=== PATIENT | female | born 1955 | race American Indian/Alaskan Native ===

== ENCOUNTER 2017-04-07 17:34 | Emergency (ER) | payer SELFPAY ==
[2017-04-07 18:33] VITALS: BMI 34.0
[2017-04-07 18:35] VITALS: TEMP 98.2
[2017-04-07] MEDS ORDERED: Albuterol-Ipratrop 3 mg / 0.5 (3 ml) UD IH STA ×2 (19:02→19:56)
[2017-04-07] MEDS ORDERED: guaiFENesin 200 mg/10 ml Syrup UD PO STA (20:18)
--- NOTE | 2017-04-07 20:23 | ED PDOC ---
Arrival/HPI - General Chief Complaint: Cough, Cold, Congestion Time Seen by Provider: 04/07/17 19:02 Historian: Patient - History of Present Illness Narrative History of Present Illness (Text): 04/07/17 20:20 62yo female with PMhx of Asthma who present with complaint of cough, nasal congestion x days. Did not take any medication. States she have not use any inhaler at home, because she don't have any. She notes that she smokes a pack a day. she denies fever, chills, SOB, diaphoresis, LE edema, calf pain, sick contact, travel. Past Medical History - Provider Review Nursing Documentation Reviewed: Yes - Reproductive Menopause: Yes - Cardiac Hx Cardiac Disorders: Yes Hx Hypertension: Yes - Pulmonary Hx Respiratory Disorders: Yes Hx Asthma: Yes - Psychiatric Hx Substance Use: No - Surgical History Other/Comment: fibroid tumor - Anesthesia Hx Anesthesia: Yes Hx Anesthesia Reactions: No Hx Malignant Hyperthermia: No Family/Social History - Physician Review Nursing Documentation Reviewed: Yes Family/Social History: Unknown Family HX Smoking Status: Heavy Smoker > 10 Cigarettes Daily Hx Alcohol Use: Yes Frequency of alcohol use: Socially Hx Substance Use: No Allergies/Home Meds Allergies/Adverse Reactions: Allergies peanuts Allergy (Uncoded 04/07/17 18:33) ANAPHYLAXIS Review of Systems - Physician Review All systems were reviewed & negative as marked: Yes - Review of Systems Constitutional: Normal Eyes: Normal ENT: Normal Respiratory: Cough. absent: Sputum, Wheezing Cardiovascular: Normal Gastrointestinal: Normal Genitourinary Female: Normal Musculoskeletal: Normal Skin: Normal Neurological: Normal Endocrine: Normal Hemo/Lymphatic: Normal Psychiatric: Normal Physical Exam Vital Signs Reviewed: Yes Vital Signs Temp Pulse Resp BP Pulse Ox 04/07/17 20:33 97 H 18 150/88 98 04/07/17 18:35 98.2 F 99 H 18 169/86 H 97 Temperature: Afebrile Blood Pressure: Normal Pulse: Regular Respiratory Rate: Normal Appearance: Positive for: Well-Appearing, Non-Toxic, Comfortable Pain Distress: None Mental Status: Positive for: Alert and Oriented X 3 - Systems Exam Head: Present: Atraumatic, Normocephalic Pupils: Present: PERRL Extroacular Muscles: Present: EOMI Conjunctiva: Present: Normal Mouth: Present: Moist Mucous Membranes Neck: Present: Normal Range of Motion Respiratory/Chest: Present: Clear to Auscultation, Good Air Exchange, Wheezes ( Mild expiratory wheeze noted at the base), Decreased Breath Sounds (Upper carl ). No: Respiratory Distress, Accessory Muscle Use, Rales, Retracting, Rhonchi, Tachypneic Cardiovascular: Present: Regular Rate and Rhythm, Normal S1, S2. No: Murmurs Abdomen: Present: Normal Bowel Sounds. No: Tenderness, Distention, Peritoneal Signs Back: Present: Normal Inspection Upper Extremity: Present: Normal Inspection. No: Cyanosis, Edema Lower Extremity: Present: Normal Inspection. No: Edema Neurological: Present: GCS=15, CN II-XII Intact, Speech Normal Skin: Present: Warm, Dry, Normal Color. No: Rashes Psychiatric: Present: Alert, Oriented x 3, Normal Insight, Normal Concentration Medical Decision Making ED Course and Treatment: 04/07/17 20:35 Pt in ED for stated history. She was not in any distress. she was talking in full sentence, ambulatory without any distress. Her lung was CTA on re evaluation s/p treatment in ED. CXR was negative for consolidation/infiltrate. She was DC home with a rx of albuterol, Zithromax , prendisone, and promethazine. she was counselled on smoking cessation. Referred to a PMD/clinic. TRT ED for any new or worsening symptoms. - RAD Interpretation Radiology Orders: 04/07/17 19:03 CHEST TWO VIEWS (PA/LAT) [RAD] Stat - Medication Orders Current Medication Orders: Discontinued Medications Albuterol/Ipratropium (Duoneb 3 Mg/0.5 Mg (3 Ml) Ud) 3 ml IH STAT STA Stop: 04/07/17 19:03 Last Admin: 04/07/17 19:07 Dose: 3 ml Albuterol/Ipratropium (Duoneb 3 Mg/0.5 Mg (3 Ml) Ud) 3 ml IH STAT STA Stop: 04/07/17 19:57 Last Admin: 04/07/17 20:32 Dose: 3 ml Azithromycin (Zithromax) 500 mg PO STAT STA PRN Reason: Protocol Stop: 04/07/17 20:19 Last Admin: 04/07/17 20:32 Dose: 500 mg Guaifenesin (Robitussin) 200 mg PO ONCE STA Stop: 04/07/17 20:19 Last Admin: 04/07/17 20:32 Dose: 200 mg Prednisone (Prednisone Tab) 60 mg PO STAT ONE Stop: 04/07/17 19:03 Last Admin: 04/07/17 19:58 Dose: 60 mg Disposition/Present on Arrival - Present on Arrival Any Indicators Present on Arrival: No History of DVT/PE: No History of Uncontrolled Diabetes: No Urinary Catheter: No History of Decub. Ulcer: No History Surgical Site Infection Following: None - Disposition Have Diagnosis and Disposition been Completed?: Yes Diagnosis: Asthma exacerbation, Cough Disposition: HOME/ ROUTINE Disposition Time: 20:25 Patient Plan: Discharge Patient Problems: Current Active Problems Problem Status Onset Asthma exacerbation Acute Cough Acute Condition: STABLE Discharge Instructions (ExitCare): Asthma (ED), Acute Cough (ED) Additional Instructions: Follow up with your Doctor Return to ED for any new or worsening symptoms Prescriptions: Albuterol HFA [Ventolin HFA 90 mcg/actuation (8 g)] 2 puff IH [id number] #1 puff Azithromycin [Zithromax] 250 mg PO DAILY #4 tab predniSONE [Prednisone] 20 mg PO DAILY #5 tab Promethazine [Phenergan Syrup] 6.25 % PO Q6 #100 ml Referrals: Jm Edwards, [Primary Care Provider] - Follow up with primary [facility] [place] [Outside] - Follow up with primary Forms: BFK[facility] (Malaysian)
[2017-04-07 20:34] VITALS: BP 150/88; PULSE 97
[2017-04-07 20:58] VITALS: RESP 19; O2SAT 99
--- NOTE | 2017-04-08 07:20 | RAD ---
HISTORY: cough COMPARISON: No prior. TECHNIQUE: Chest PA and lateral FINDINGS: LUNGS: No active pulmonary disease. PLEURA: No significant pleural effusion identified. No pneumothorax apparent. CARDIOVASCULAR: Normal. OSSEOUS STRUCTURES: No significant abnormalities. VISUALIZED UPPER ABDOMEN: Normal. OTHER FINDINGS: None. IMPRESSION: No acute cardiopulmonary disease appreciated.
== END 2017-04-07 20:57 | disposition home or self-care (01) ==
LOC: ED 17:34
DX: J45.901 Unspecified asthma with (acute) exacerbation (principal); R05 Cough; I10 Essential (primary) hypertension; F17.210 Nicotine dependence, cigarettes, uncomplicated